=== PATIENT | female | born 1965 | race Caucasian/White ===

== ENCOUNTER 2021-04-04 17:19 | Inpatient (IN) | payer MEDICARE ==
[~2021-04-04] VITALS: Ht 152.4 cm; Wt 49.0 kg
[2021-04-05 00:40] VITALS: BP 134/73
[2021-04-05 06:56] LABS: CHOLESTEROL 189 mg/dL (<200); HDL CHOLESTEROL 80 mg/dL (>40); LDL CHOLESTEROL 102 mg/dL (<100); TC:HDL 2.4 Ratio (Not establshd); TRIGLYCERIDE 38 mg/dL (<150); VLDL 8 mg/dL (<40)
--- NOTE | 2021-04-05 07:12 | NUR ---
04-05-21 RECEIVED LIMITED REPORT FROM ED RN ESTHER. PT ARRIVED ON UNIT 0040 PT AAOX2, VS B/P 134/73, P 93, R 18, T 98.0, 02 SAT 96% RA RR EVEN AND NONLABORED ON RA, LUNGS CLEAR, HT RR, ABD SOFT/ACTIVE/NONTENDER. PT YELLING OUT REPEATLY AGITATED AND AGITATION EXCELLED DURING CARES, PT HAS REDNESS IN PERIAREA, CLEANED WITH SOAP/WATER, BARRIER CREAM APPLIED. PT BED WAS ADJUSTED FOR COMFORT AND PT ALLOWED QUIET TIME IN ROOM. PT HX DOWNS SYNDROME, ELEVATED CHOLESTEROL, SEZUIRES, HYPOGLYCEMIA, VON HIPPEL-LINDAU SYNDROME AND DEMENTIA. HCP Dee CHAIDEZ, MEDICAL LAB ASSISTANT CONTACTED, HCP Dee IVEY DO CONTACTED AND ORDERS RECEIVED. PT DPOA DELORES JORDAN (SISTER) CONTACTED AND CONSENT RECEIVED REPORT THAT PT HAS BEEN VACCINATED FLU AND COVID WITH BOOSTER, DPOA POOR HISTORIAN WHEN RELATING INFORMATION. DPOA REPORTED THAT PT HAS BEEN IN 4 FACILITY AND 2 DIFFERENT HOSPITALS WITH MULTI ENCOUNTERS TO ED SINCE OCTOBER 2020 [address] F[address] [place] [address] AND SEVERAL TRIPS TO ED PRIOR TO DISCOVERY OF FRACTURE IN SPINE AND DPOA BELIEVES THAT PAIN LEAD TO HER SISTER HAVING SEIZURES. DPOA IS CONCERNED ABOUT SEVERAL FACILITIES OVER MEDICATING HER SISTER. LATER PT YELLING OUT, TEARFUL AND AGITATED. HCP Dee IVEY DO CONTACTED AND ORDER RECEIVED AND ADMIN. LATER PT WAS SMILING AND COOPERATIVE, PT VERBAL COMMUNICATIN IS LIMITED R/T MENTAL STATUS. PT WILL CONTINUE TO BE MONITOR PER [facility] PROTOCOL.
[2021-04-05 08:50] LABS: ABSOLUTE NEUTROPHILS 5.2 thou/uL (1.4-8.2); BASOPHILS 0.7 % (0.0-2.0); EOSINOPHILS 0.6 % (0.0-3.0); HEMATOCRIT 38.4 % (37.0-47.0); HEMOGLOBIN 12.3 gm/dL (12.0-15.0); LYMPHOCYTES 10.8 % (24.0-44.0); MCH 30.9 pg (26.0-34.0); MCHC 31.9 g/dL (28.0-37.0); MCV 96.7 fL (80.0-100.0); MONOCYTES 8.5 % (1.0-8.0); PLATELET COUNT 201 thou/uL (150-400); POLYS 79.4 % (36.0-66.0); RBC 3.98 mil/uL (4.20-5.00); RDW 13.8 % (10.5-14.5); WBC 6.6 thou/uL (4.0-11.0)
[2021-04-05 08:53] LABS: ANION GAP 16 mmol/L (7-16); BUN 19 mg/dL (7-18); CALCIUM 9.4 mg/dL (8.5-10.1); CHLORIDE 100 mmol/L (98-107); CO2 21 mmol/L (21-32); CREATININE 0.9 mg/dL (0.6-1.0); GLUCOSE 166 mg/dL (74-106); MAGNESIUM 2.2 mg/dL (1.8-2.4); POTASSIUM 3.8 mmol/L (3.5-5.1); SODIUM 137 mmol/L (136-145)
[2021-04-05 10:03] VITALS: BP 95/52
--- NOTE | 2021-04-05 11:17 | NUR ---
Nutrition: Pt admitted to [facility] with major neurocognitive disorder with behaviors. Seen due to new admission. PMH: Downs syndrome, dementia, seizure. Pt ate well by herself this am, 100% of breakfast. No weight hx. BMI 21 WNL. Low nutrition risk.
--- NOTE | 2021-04-05 12:28 | NUR ---
Welcome Email sent to [email or web address]
--- NOTE | 2021-04-05 12:52 | NUR ---
RESTLESS THIS AM ASKING TO GO TO BATHROOM FREQUENTLY -DID VOID MODERATE AMOUNT CLEAR YELLOW URINE-ATE APPROX 50 PERCENT OF MEAL AND ALL OF ENSURE SUPPLEMENT PROVIDEDREQUIRES TOTAL ASSISTOF STAFF DOES VERY LITTLE FOR SELF-INSISTING THAT SHE "CAN"" LIFT CUP OR SPOON OR FORK TO FEED SELF. ABDOMEN NOTED TO BE FIRM DURING AM ASSESSMENT-BLADDER SCAN COMPLETED AND LESS THAN 70CC URINE INBLADDER-STRAINING TO HAVE BM-MD CALLED AND ORDER OBTAINED FOR FLEETS ENEMA AND ASSISTED ONTO COMMODE-ENEMA GIVEN WITH LARGE AMOUNT HARD STOOL PASSED.
--- NOTE | 2021-04-05 13:15 | NUR ---
COMPLIENT WITHTAKING AM MEDICATIONS WHOLE WITH APPLESAUCE-NOTED DURING BREAKFAST TO HAVE SOME RESTLESSNESS-ANXIOUS FACIAL EXPRESSION-MULTIPLE ATTEMPTS TO STAND OCCASSIONALLY WILL YELL OUT BUT WHEN STAFF APPROACHES CLOSES EYES TIGHTLY AND WILL NOT RESPOND WHEN ASKED WHAT IT WAS SHE NEEDED-NODS HEAD IN NEGTIVE MANNER WHEN ASKED IF HAVING PAIN. ATIVAN 0.5MGPO PRN ALONG WITH AM MEDICATIONS. DID REST QUIETLY IN CHAIR FOR APPROX 40 MINUTES RECLINING IN GERICHAIR IN DAYROOM. BEGAN TO YELL OUT STARTING AT APROX 1100 WITH VOLUME AND INTENSITY OF SCREAMING INCREASING PM PROGRESSES. DR PERRY ON UNIT AND ZYPREXA 2.5MG GIVEN PO AT 1300 PER ORDER. PT ASSISTED TO BATHROOM BRIEF CHANGED AND RESPOSITONED FOR COMFORT. TAKEN TO ROOM IN ATTEMPT TO DECREASE STIMULI./
--- NOTE | 2021-04-05 15:25 | NUR ---
EFRAIN and Dr. Craig attempted to visit with patient. Patient was sleeping in Joselin-chair in dayroom. EFRAIN and Dr. Craig made phone contact with patient's sister, Millie King. Millie is the patient's DPOA. She has cared for the patient since the of their parents in 2007. Millie states the patient experienced a fall, hitting the top of her head in November 2020. The patient later had a seizure from this fall. The patient has had two additional seizures but not as significant as the first. Millie reports the patient will scream and cry out; however, Millie reports being able to calm her. She feels the patient is crying out due to anxiety from not being with her. Millie is supportive of the patient being on medication to assist with her yelling and crying out. Millie does not want her on seizure medication. Millie reports the patient was born in [place], [place] and raised in [place], [place]. The patient has a total of six siblings. She is the baby. The patient completed high school. She reportedly has an IQ in the 90s and has worked a job which she enjoyed as it provided routine. Millie describes the patient as loving to be around others, active and very cooperative when not over medicated. Millie is looking into [employer] for the patient. Millie does not believe the patient would be successful in her home as the home is not conducive to those with handicaps. Email sent scheduling family meeting for 04/10 at 2:00pm.
[2021-04-05 19:02] VITALS: BP 134/96
--- NOTE | 2021-04-06 05:12 | NUR ---
Assumed care of pt at 1900. Pt with verbal outbursts from beginning of shift increasing in tone et veracity until nursing had to be prompted to call KOSHER INSPECTOR executive director contract shop for PRN order of Ativan 0.5mg IM to be administered to pt at 1930. Pt tolerated injection with no signs or symptoms of adverse reaction. Pt calmed down but only slightly et began yelling again approximately 45 minutes to one hour following injection. Pt finally calmed down enough to sleep around 2200. Pt took meds whole in yogurt without difficulty. Ambulates with assistance of sharan-chair. VSWNL. Health assessment with no abnormalities noted at present time. Unable to assess SI/HI due to cognitive deficit but does not demonstrate any symptoms of acute emotional distress at present time. Currently resting in bed with eyes open et starting to vocalize at approximately 0515 this AM. Will continue to monitor per unit protocol.
[2021-04-06 06:06] LABS: GLYCOHEMOGLOBIN (HGB A1C) 5.2 % (4.8-5.6)
[2021-04-06 09:47] VITALS: BP 120/72
[2021-04-06 11:00] VITALS: BP 88/60
--- NOTE | 2021-04-06 11:20 | NUR ---
RESUMMED CARE FROM OVERNIGHT SHIFT THIS AM, PATIENT IN DAY ROOM SITTING IN HARRY CHAIR. PATIENT WAS CALM DURING BREAKFAST TOOK MEDICATION IN APPLESAUCE. PATIENT ALERT ORIENTED TIMES 2 PATIENT DENIES SI/HI/AH/VH AT PRESENT. PATIENTS ABDOMEN SOFT BOWEL SOUNDS PRESENT PATIENTS LUNGS CLEAR. PATIENT AROUND 09:45 STARTED YELLING OUT FOR LU. WE TRIED TO CALM PATIENT AND REMOVED HER FROM THE DAY ROOM. SHE STILL CONTINUED TO YELL OUT THREW DOLL BABY ON FLOOR; I CALLED [employer] PAINTER FOR PRN HE ORDERED GEODON 15 MG IM. PATIENT ALLOWED ME TO GIVE PRN WITHOUT BEING HELD. PATIENT IS NOW RESTING IN BED QUIET WILL CONTINUE TO MONITOR PATIENT FOR SAFETY AND BEHAVIORS.
[2021-04-06 19:00] VITALS: BP 82/53
--- NOTE | 2021-04-06 21:53 | H ---
[facility] [place] [address] [place] [address] HISTORY AND PHYSICAL Name: MARLENI BENJAMIN Room #: 519A-A ADM IN M.R.#: [id number] Admission: 04/05/21 Attend Phys: Frantz Craig DO Discharge: Date of : 63 Report #: [id number] THIS REPORT FOR: cc: FAM - No family physician/PCP FAM - No family physician/PCP Frantz Craig DO ~ DATE OF SERVICE: 04/05/2021 INPATIENT GERIATRIC PSYCHIATRIC EVALUATION SOURCES OF INFORMATION: The patient is demented with Down syndrome and poor functional level and is unable to answer any reasonable questions. She is crying out frequently. She gets calmed down. Anyways, she has a DPOA, her sister named, Millie. In addition, the patient had a fairly prolonged hospital stay at [facility]. Her date of admission up there was 03/27/2021 and day of discharge would have been 04/04/2021. CHIEF COMPLAINT: Unspecified. HISTORY OF PRESENT ILLNESS: This is a 55-year-old female who presented via EMS for crying. She lives at a facility, [facility] in [place], which is not allowing her to return. She presented with her sister who likely gave all the history. She has been living for 2 months since November at the facility for difficult to control her anxiety as well as take care of the patient. This facility now feels like the patient is too hard to care of during anxiety episodes. She has had a televideo visit with a psychiatrist, who has been tweaking her medicines without able to control the patient. She is on citalopram, trazodone, clonazepam as needed and is currently on Seroquel and most recently on risperidone. The sister states that the patient just has these episodes of anxiety attacks, where she is not there and the staff was having trouble controlling her, so they have sent her to the ER due to feeling that she is too acutely ill for them to take care of. PAST MEDICAL HISTORY: Includes Down syndrome, elevated cholesterol, focal epilepsy, hypoglycemia, and von Hippel-Lindau syndrome. PSYCHIATRIC HISTORY: Dementia. 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 She has also had a tonsillectomy. MEDICATIONS: Prior to admission at [facility] included vitamin D3; B12; fish oil; pravastatin; oxcarbazepine 300 mg per 5 mL, 2 mL p.o. b.i.d., so she was on 600 b.i.d. [facility] [address] [place] [address] HISTORY AND PHYSICAL Name: MARLENI BENJAMIN Room #: 519A-A ADM IN M.R.#: [id number] Admission: 04/05/21 Attend Phys: Frantz Craig DO Discharge: Date of : 63 Report #: [id number] ALLERGIES: MONTELUKAST CAUSES MEMORY LOSS AND CONFUSION. SOCIAL HISTORY: No alcohol history. No substance use history. No tobacco history. FAMILY HISTORY: Bladder cancer in her father, cancer of colon in her mother, diabetes in father. Interestingly, her mother had von Hippel-Lindau syndrome as well. LABORATORY DATA: The laboratory list I got from [facility], labs done around 03/27/2021, include H and H 13.8 and 42.0, white count 6.3, platelet count 199. Sodium 139, potassium 3.9, chloride 102, bicarbonate 28, calcium 9.7. Alkaline phosphatase 93, ALT 19, AST 20. B12 level 713. Folic acid 17.1. Vitamin D 25 actually normal at 46.1, total protein 7.8, albumin low at 3.3, BUN 19, creatinine 0.8. TSH 2.31. It looks like they did a SARS-CoV-2 PCR, I believe that was negative. There was a CT head done. I do not see radiology results yet. Urine drug screen was negative. The SARS-CoV-2 PCR was negative as well. Hopefully on further records, we will remark on this CT scan; I cannot find the results of it at this point. It looks like at [facility], they diagnosed her Down syndrome and major neurocognitive disorder. She is on Ativan 0.5 mg daily, risperidone 0.25 mg daily, continuing escitalopram; also hyperlipidemia. Dr. Marte saw this patient as well. Some additional notes, no history of head injuries. Her brother does have seizures. Prior EEGs have demonstrated generalized slowing consistent with diffuse cerebral dysfunction. MRI brain from 05/2020 is compared to a prior study of 08/2018, which demonstrated moderate supratentorial ventriculomegaly and minimal bifrontal white matter changes, perhaps minimally progressed. Most likely, they did a pretty extensive evaluation, Dr. Marte that is. He had diagnosed her with anxiety disorder. EEG was ordered, but it does not appear that it was done before the weekend, and there was concern for nonconvulsive status. Still, I do not see any EEG report, but sometimes such reports are not easy to find. It looks like Dr. Pereyra saw her on 04/01/2021 and there still was not an EEG done. Her medications at [facility] they were managing on include cholecalciferol, diclofenac, lidocaine, multivitamin, omega 3 poly, unsaturated fatty acids, acetaminophen, artificial tears, docusate, lorazepam 0.5 mg p.o. q. 6 hours and 1 mg q. 4 hours, mag citrate, melatonin, naloxone p.r.n. Finally, found from Dr. Pereyra EEG completed this morning. When I came to the floor, the patient was screaming loudly for around 5 minutes and was given lorazepam with good effect. Sister was present during the interview and she thinks at this point it is related to abdominal pain. This was on the 04/02/2021, so maybe on the 04/03/2021, she will have EEG results. EEG shows slowing, but no seizure activity. ABI moseley. [facility] [address] [place] [address] HISTORY AND PHYSICAL Name: MARLENI BENJAMIN Room #: 519A-A ADM IN M.R.#: [id number] Admission: 04/05/21 Attend Phys: Frantz Craig, DO Discharge: Date of : 63 Report #: [id number] Abdominal x-ray showed scattered gas and stool, but no evidence for obstruction and compliant with risperidone. I still do not see any CT results done at [facility], so we will have to track this down under their comments. Here at [facility] from 04/05/2021, hematology: White count 6.6, H and H 12.3 and 38.4, platelet count 201. Sodium 137, potassium 3.9, chloride 100, bicarbonate 21, anion gap 16, BUN 19, creatinine 0.9, estimated GFR 65, glucose 166. A1c is pending. Calcium 9.4, magnesium 2.2. Triglycerides 38, cholesterol 189, LDL 102, HDL 80. B12 was 713. TSH 1.225. PHYSICAL EXAMINATION: VITAL SIGNS: Today, temperature 36.4, pulse 77, respirations 17, BP 95/50, O2 sat 99%. BMI 21.3, weight 49.578 kilograms. GENERAL: Well-developed, unkempt female, short stature, in chair, crying and yelling frequently. MENTAL STATUS EXAMINATION: Well-developed, ill-appearing female, apparently with Down's features. Attention and concentration impaired. Speech, says some words periodically, but not able to converse with her. I am unable to assess well for suicidality, homicidality, auditory, visual or tactile hallucinations. Mood was dysphoric, tearful, and congruent. Memory not able to be formally tested. Insight is impaired and judgment impaired. Fund of knowledge well below average. FORMULATION: A 55-year-old female formerly under placement of her sister's DPOA. DIAGNOSIS: Major neurocognitive disorder. Her medical problems as best I can tell are chronic constipation- I will order stool softener, elevated glucose, GI prophylaxis. Review of systems cannot be completed. PLAN: The patient is admitted to [facility] to evaluate, stabilize, obtain collateral. Regarding her medications, famotidine 20 mg oral daily; olanzapine 2.5 mg oral at 1300 and 2100, we will change that to 9 and 9. Senna docusate started 2 tabs p.o. b.i.d., multivitamin p.o. daily, Flonase nasal daily, fish oil daily, diclofenac topical b.i.d., vitamin D 2000 international units oral daily, MiraLax 17 grams p.o. daily. Otherwise, house PRNs. I spoke to the sister at fair length today. Discussed the difficulty of the situation. The sister had not gotten much sleep and had had a rather unproductive conversation with her nightshift nurse. Today, the sister is feeling much better. She appreciates her health, will take this [id number] and attempt to get better placement for her. The patient is [facility] [address] [address] HISTORY AND PHYSICAL Name: MARLENI BENJAMIN Room #: 519A-A ADM IN M.R.#: [id number] Admission: 04/05/21 Attend Phys: Frantz Craig DO Discharge: Date of : 63 Report #: [id number] very sensitive to psychiatric medications. Medications like clonazepam and Ativan are not exactly preferred. STRENGTHS: She is insured, has an active DPOA. WEAKNESSES: Does not have a placement, several significant genetic diseases. No code at this point. Time spent on this case, greater than 60 minutes, greater than 50% of the time was spent on reviewing records and coordination of care. <ELECTRONICALLY SIGNED> By: Frantz Craig DO 04/06/21 2153 [id number] [id number] Frantz Craig DO /nt
--- NOTE | 2021-04-07 06:36 | NUR ---
Assumed care of pt at 1900. Pt calm et cooperative this shift. Took medications whole without difficulty. Ambulates with assistance of sharan-chair. Spent most of shift in room due to sedation from PRN given on previous shift. VSWNL. Health assessment with no abnormalities noted at present time. Unable to assess SI/HI due to cognitive deficit but does not demonstrate any symptoms of acute emotional distress at present time. Currently resting in sharan-chair in dayroom with eyes open. Will continue to monitor per unit protocol.
[2021-04-07 09:10] VITALS: BP 109/58
--- NOTE | 2021-04-07 09:57 | NUR ---
REQUIRES TOTAL CARE WITH ALL ADLS WILL NOT INITIATE FEEDING SELF AND WHEN CUP AND OR FOR/SPOON PLACED IN HANDS APPEARS UNSURE OF WHAT TO DO WITH IT. WILL EAT WHEN FEED ALTHOUGH APPEARS TO DO BETTER WITH PUDDING/ICE CREAM AND WILL NOT OPEN MOUTH FOR EGGS/SURINAMESE TEST WHEN OFFERED AT BREAKFAST. TAKES FLUIDS WELL.
--- NOTE | 2021-04-07 18:18 | NUR ---
HAS CONTINUED TO YELL OUT EPISODICALLY THROUGHOUT SHIFT-WILL QUIET WHEN STAFF SITTING AT SIDE HOLDING HER HAND OR WHEN GIVEN SPRITE,ICE CREAM OR PUDDING-HAS BEEN ASSISTED TO TOILET Q2 HOURS AND IS COMPLIENT WITH INCONTINENT CARE. NOTED TO BECOME LOUDER AND MORE AGITATED PM PROGRESSD-ATTEMPTED TO LAY IN BED WAS NOT RESPONDING TO ABOVE NOTED INTERVENTIONS. APPEARS SUSPICIOUS OF STAFF AND BEGINS TO STRIKE OUT WITH ATTEMPTS TO PROVIDE CARE OR REDIRECT/REASSURE. DEANNA GIL ON UNIT AND OVERHEARD SCREAMING GEODON 15MG GIVEN IM X1 AT 1745 IN RIGHT DELTOID-OFFERED NO RESISTANCE TO ADMINISTRATION OF MED.
[2021-04-07 19:32] VITALS: BP 124/73
[2021-04-07 20:00] VITALS: BP 124/73
--- NOTE | 2021-04-07 23:45 | NUR ---
PATIENT WAS UP IN HARRY CHAIR THIS EVENING. SHE HELD HER DOLL AND SAT QUIETLY IN DAYROOM WHILE [employer] GAME WAS ON. SHE REFUSED HS SNACK. SHE SAYS SHE'S NOT HUNGRY. PATIENT HAD LARGE BM AND WAS CLEANED UP. DENIES PAIN. PLEASANT AND COOPERATIVE. PATIENT ASSISTED BACK TO BED. CHAIR ALARM ON AND WORKING WHEN UP IN CHAIR. BED ALARM ON WHILE IN BED AND BED IN LOW POSITION. PT A/0X1. PATIENT TOOK MEDS WHOLE WITH WATER. NO INDICATIONS OF SI/HI/AVH AT THIS TIME. ROUTINE ROUNDS TO ASSESS SAFETY AND STATUS OF PATIENT.
[2021-04-08 09:25] VITALS: BP 130/92
--- NOTE | 2021-04-08 11:00 | NUR ---
DID EAT APPROX 75 PERCENT OF BREAKFAST WITH STAFF ASSISTANCE. NO YELLING OUT SO FAR THIS AM-OCCASSIONALLY WILL OFFER 1-2 WORD VERBAL RESPONSES. TOILETED VIA COMMODE Q 2 HOURS AND ALLOWED BRIEF CHANGE INCONTINENT CARE WITHOUT RESISTANCE.
--- NOTE | 2021-04-08 14:49 | NUR ---
SW visited with patient. Patient smiled and stated she was doing good. Patient expressed excitement to color but did not color. Patient was present in the room for group but did better when the SW spoke to her one-on-one.
--- NOTE | 2021-04-08 15:30 | NUR ---
NO YELLING OUT SO FAR TODAY-COMPLIENT WITH TAKING SCHEDULED MEDICATIONS WHEN OFFERED. MINIMALLY VERBAL WILL OFFER 1-2 WORD RESPONSES OR SPONTANEOUS VERBALIZATION AT TIMES. REQUIRES ASSIST X 1-2 TO TRANSFER TO/FROM COMMODE.
[2021-04-08 19:52] VITALS: BP 94/61
[2021-04-08 20:10] VITALS: BP 94/61
--- NOTE | 2021-04-08 21:11 | NUR ---
PATIENT STARTED OUT SHIFT SITTING AND PLAYING WITH HER DOLL IN THE DINING ROOM. SHE SAT IN HARRY CHAIR ON CHAIR ALARM THAT WAS ACTIVATED. PATIENT WAS PLEASANT AND COOPERATIVE. SHE TOOK HER MEDS WHOLE WITH APPLEJUICE. SHE ALSO FED HERSELF WITH SOME ASSISTANCE YOGURT. SHE DENIES PAIN. SHE BECAME IRRITABLE AROUND 2044 AND BEGAN YELLING OUT PLAY. PLAY. STAFF TRIED TO ENTERTAIN HER AND THIS MADE HER MORE MAD. PATIENT TAKEN TO BED AND INCONTINENCE CARES DONE. PATIENT LAYING IN BED AND CRYING OUT AT TIMES. SHE IS SLOWLY QUIETING DOWN. WORDS OF REASSURANCE AND ROOM CHECKS TO COMFORT HER. NO SIGNS OF SI/HI/AVH. CONTINUING TO MONITOR.
--- NOTE | 2021-04-08 21:41 | NUR ---
PATIENT STILL FUSSY WHILE IN BED. PATIENT RESTLESS AND SAYS YES TO PAIN BUT CAN'T INDICATE WHERE. SHE CALMS DOWN WHEN I TELL HER I WILL GO GET HER SOMETHING TO HELP HER PAIN. I GAVE PATIENT TYLENOL 650MG PO AND ALSO FAMATODINE TO HELP WITH GERD OR STOMACH UPSET WITH TYLENOL. PATIENT TOOK MEDS WHOLE WITH WATER. PATIENT LAID BACK DOWN AND IS PLAYING WITH A POP UP BOARD AND HER DOLL. PT RESTING QUIETLY. BED IN LOW POSITION AND BED ALARM IS ON.
[2021-04-09 08:00] VITALS: BP 90/56
[2021-04-09 08:57] VITALS: BP 75/63
--- NOTE | 2021-04-09 11:40 | NUR ---
Alert and orientated to name only. No speech or behavior suggestive of SI/HI. Resistive to getting out of bed requiring 2 staff assist. Happy and compliant at table, laughing. Breath sounds clear. Reg HR auscultated. Color pink with brisk capillary refill and palpable peripheral pulses. BP repeated at 0800 90/56. Initially BP was 75/63. Incontinent of large amt yellow urine. Active bowel sounds over soft rounded abdomen. Per report DPOA requesting pt to work with PT d/t she had been walking previously. Dr. Craig notified, order placed for PT consult.
[2021-04-09 19:08] VITALS: BP 97/51
--- NOTE | 2021-04-10 04:33 | NUR ---
04-10-21 CARE TRANSFERRED 1899 OBSERVED PT SITTING IN RECLINER IN DAY ROOM. LATER PT AAOX1, VSS, RR EVEN AND NONLABORED ON RA, PT DENIES SI/HI. PT PRESENTS CHILD LIKE BUT HAPPY AND TRIES TO ENGAGE IN CONVERSATION BUT FALLS SHORT R/T MENTAL CAPACITY. PT CALM AND COOPEATIVE. DURING MEDICATION ADMIN PT HAD NO DIFFICULTIED TAKING WHOLE WITH WATER. LATER PT WAS ASSISTED TO BED AND DURING ROUNDS NOTED PT SITTING UP NOT SLEEPING. PT WILL CONTINUE TO BE MONITOR PER [facility] PROTOCOL.
--- NOTE | 2021-04-10 08:39 | NUR ---
Pt. had a longer than normal seizure so CONTRACT CLERK AUTOMOBILE was activated-see flowsheet
[2021-04-10 09:35] LABS: ALBUMIN 2.7 g/dL (3.4-5.0); CALCIUM 9.2 mg/dL (8.5-10.1); CREATININE 0.9 mg/dL (0.6-1.0); MAGNESIUM 2.1 mg/dL (1.8-2.4); POTASSIUM 3.5 mmol/L (3.5-5.1); TOTAL BILIRUBIN 0.3 mg/dL (0.2-1.0); TOTAL PROTEIN 7.3 g/dL (6.4-8.2)
[2021-04-10 11:11] VITALS: BP 120/56
[2021-04-10 11:12] LABS: URINE BILIRUBIN NEGATIVE (Negative); URINE BLOOD NEGATIVE (Negative); URINE CLARITY CLEAR; URINE COLOR YELLOW; URINE GLUCOSE-RANDOM* NEGATIVE (Negative); URINE KETONES NEGATIVE (Negative); URINE LEUKOCYTES-REFLEX NEGATIVE (Negative); URINE NITRITE-REFLEX NEGATIVE (Negative); URINE PROTEIN (DIPSTICK) NEGATIVE (Negative); URINE SPECIFIC GRAVITY 1.025 (1.005-1.035); URINE UROBILINOGEN 0.2 E.U./dl (0.2-1.0)
--- NOTE | 2021-04-10 12:36 | NUR ---
RESUMMED CARE FROM OVERNIGHT SHIFT THIS AM, PATIENT SITTING NEXT TO NURSES STATION QUIET IN HARRY CHAIR. PATIENT ALERT TO SELF ONLY PATIENT HAD A SEIZURE WHILE SITTING IN HARRY CHAIR AT 0800 AM. RAPID RESPONSE CALLED PATIENT SEIZURE LASTED ABOUT 1 MINUTE. PATIENT GIVEN ATIVAN [address] LAZO ORDERED LIQUID KEPPRA 500 BID. PATIENTS VITALS WITHIN NORMAL LIMITS DR IVEY SPOKE WITH SISTER ABOUT HER SEIZURE HX. PATIENT HAD EPISODE OF ENCOPRESIS DURING SEIZURE. PATIENT CLEANED UP AND I DID A STRAIGHT CATH FOR A UA, PATIENTS ABDOMEN SOFT BOWEL SOUNDS PRESENT. PATIENTS LUNGS CLEAR NOT ABLE TO ASK ABOUT SI/HI/AH/VH AT PRESENT. PATIENT RESTING VERY QUIETLY WILL CONTINUE TO MONITOR PATIENT FOR SAFETY AND BEHAVIORS.
--- NOTE | 2021-04-10 16:59 | NUR ---
Family meeting with Dr. Craig and Millie. Millie expressed wanting the patient to be placed in her home Thursday with supports in place. Millie reports that she is having a bedroom moved to the living room so the patient does not have to navigate stairs. Millie has two people lined up to assist with care for the patient. Millie feels the patient's behaviors is due to separation anxiety. Millie requested orders for PT for the patient. Discharge was scheduled for Thursday, 04/12 at 1:00pm. The will assist in getting psychiatrist arranged for the patient.
[2021-04-10 18:45] VITALS: BP 98/53
[2021-04-10 20:30] VITALS: BP 98/53
--- NOTE | 2021-04-10 23:35 | NUR ---
PATIENT WAS RECLINING IN HARRY CHAIR IN FRONT OF NURSE STATION WHEN ASSUMED CARE OF PATIENT. HER HEAD WAS BENT TO THE LEFT SHE KEPT TRYING TO REST IT ON ARM OF CHAIR. PILLOW WAS PLACED UNDER HER HEAD BUT KEPT COMING OUT AND PUT BACK IN PLACE. PATIENT'S NECK WAS SORE AND SHE CRIED OUT IT TRIED TO STRAIGHTEN NECK. DICLOFINAC CREAM APPLIED TO NECK AND TYLENOL 650MG PO GIVEN WITH HS MEDS FOR DISCOMFORT. PATIENT TOOK MEDS CRUSHED IN PUDDING. PATIENT KEPT CALLING OUT FOR HELP BUT YELLED AND PUSHED US BACK WHEN WE CAME TO HER. PATIENT FELL ASLEEP FOR SHORT TIME IN CHAIR AND AWOKE SHORTLY AFTER AND BEGAN CALLING OUT. PATIENT TAKEN TO HER ROOM TO DO INCONTINENCE CHECK. PATIENT POSITIONED COMFORTABLY IN BED FOR THE NIGHT. PATIENT KEPT YELLING OFF AND ON. PATIENT HAS A ROOM MATE. CALLED DEANNA OROSCO AND RECIEVED ORDER FOR ATIVAN 0.5MG PO Q 6 HOURS PRN AGITATION. IT HAS BEEN OVER 2.5 HOURS AND PATIENT STILL CALLING OUT AND NOTHING CALMING HER. SHE CALMS DOWN FOR SHORT SPURTS AND THEN STARTS UP AGAIN. WHEN I GO INTO HER ROOM SHE IS SO DROWSY WITH EYES CLOSED AND CALLING OUT. WHEN I TRY TO REPOSITION HER OR ASK HER IF SHE'S HURTING SHE PUSHES MY HAND AWAY AND YELLS GO AWAY. NOTIFIED DEANNA OROSCO AND WE WILL TRY AND WAIT TILL 0230 FOR NEXT DOSE OF ATIVAN. CONTINUING TO MONITOR. PATIENT IS A/0X1. NO INDICATION OF SI/HI/AVH. NOTED. BED IN LOW POSITION AND BED ALARM IS ON.
--- NOTE | 2021-04-11 00:36 | NUR ---
PATIENT STILL WHINING AND MOANING IN SLEEP. PT AWOKE ENOUGH TO TAKE ZOFRAN 4MG PO PRN. NOT SURE IF STOMACH UPSET OR DISCOMFORT SOMEWHERE ELSE. REPOSITIONED. PATIENT QUIETED AND RESTING. CONTINUE TO MONITOR. MED TAKEN WITH PUDDING.
--- NOTE | 2021-04-11 02:36 | NUR ---
PATIENT STILL CALLING OUT WHILE HALF ASLEEP AND VERY LOUD AT TIMES. DOESN'T WANT TO BE TOUCHED AND SCREAMS WITH CARES. TYLENOL 650MG PO AND ATIVAN 0.5MG PO CRUSHED IN APPLESAUCE AND GIVEN AT 0230. PATIENT REPOSITIONED. STILL CALLING OUT. WILL GET PT UP IN [facility] IF NOT QUIETED IN A FEW MINUTES. PATIENT HAS BEEN CALLING OUT MOST OF NIGHT. ROOM MATE NOT ABLE TO REST WELL.
--- NOTE | 2021-04-11 05:07 | NUR ---
PATIENT FINALLY FELL OFF TO SLEEP SOUNDLY AROUND 0345. SHE HAS NOT CRIED OUT SINCE THEN. SEEMS TO BE RESTING PEACEFULLY AND SOUNDLY. RESPIRATIONS EVEN AND UNLABORED. CONTINUING TO MONITOR. BED IN LOW POSITION AND BED ALARM IS ON.
[2021-04-11 10:32] VITALS: BP 128/74
--- NOTE | 2021-04-11 15:08 | NUR ---
Ene appeared to be alert and oriented to self only this shift. At the start of the shift pt appeared tired and was not alert enough to eat breakfast; per shift production supervisor pt slept "about 2 hours" and fell asleep around 0400. Shortly after breakfast pt began to moan and yell out. Due to pt opening her eyes and being a little more alert this RN attempted to give pt her liquid Keppra. Pt began coughing and coughed for about 15 minutes afterwards; therefore medications crushed in yogurt were held. Dr. Craig ordered a stat chest x-ray and speech evaluation. Pt's diet was switched to a pureed diet.
[2021-04-11 19:48] VITALS: BP 126/68
--- NOTE | 2021-04-11 22:50 | NUR ---
At onset of operation shift supervisor pt was resting in bed asleep. Day shift reported that pt received IM toradol at 0946 and has been asleep for the day. During assessment pt would not reposition but pt did moan and stir in bed. Vital signs were stable; O2 at 96% on room air, respirations were even and unlabored. Unable to assess orientation, SI, HI and AVH. Pt did not have any PO HS medications. Fall precautions are in place. Will continue to monitor.
[2021-04-12 07:49] VITALS: BP 104/58
--- NOTE | 2021-04-12 08:59 | NUR ---
Phone call to Evangelist regarding scheduling a psychiatric appointment four the patient - office closed on Fridays.
[2021-04-12] MEDS ORDERED: LORAZEPAM I2 MG/1 M2 SUBLING (09:15)
[2021-04-12] MEDS ORDERED: FLONASE 0.05%50 MCG NASAL (09:15)
[2021-04-12] MEDS ORDERED: CENTRUM SILVER1 EAC4 PO (09:17)
[2021-04-12] MEDS ORDERED: VITAMIN D325 MC2 PO (09:17)
[2021-04-12 09:28] VITALS: BP 104/58
[2021-04-12 11:29] VITALS: BP 104/58
--- NOTE | 2021-04-12 13:12 | NUR ---
Ene Nguyen was alert and oriented to self only this shift. She was more alert this morning and was able to take a couple bites of food and ate a whole container of applesauce, with a feeder. She was noted to be laughing and smiling and more conversive. She received a shower with x2 assistance prior to discharge and was changed into her own clothing. Discharge summary was reviewed with LG/sister Millie, all questions answered. Pt was escorted to the ER enterance where pt's CINDY Pinto was via w/c. Pt was transferred to the car and discharged with all belongings. Pt was stable at D/C. She left [facility] at 1253. Millie called back shortly after regarding pt's hearing aids as they were taken out during pt's shower, but this RN brought them back down to the ER to Millie. Millie was encouraged to call with any further questions.
--- NOTE | 2021-04-13 17:07 | D ---
[facility] [place] [address] DISCHARGE SUMMARY Name: MARLENI BENJAMIN Room #: 519B-B DIS IN M.R.#: [id number] Admission: 04/05/21 Attend Phys: Frantz Craig DO Discharge: 04/12/21 Date of : 63 Report #: [id number] THIS REPORT FOR: cc: FAM - No family physician/PCP FAM - No family physician/PCP Frantz Craig DO ~ DATE OF SERVICE: 04/12/2021 INPATIENT PSYCHIATRIC DISCHARGE SUMMARY ATTENDING PSYCHIATRIST: Frantz Craig DO [employer]EN[employer]IFUG[employer] CHILLER TECHNICIAN: Kelly Catalan MD DISCHARGE DIAGNOSES: 1. Major neurocognitive disorder, likely due to Alzheimer's disease with behavioral disturbance, some improvement. 2. Down syndrome. 3. History of Hippel-Lindau disease. Additional medical morbidities include possible seizure disorder, guardian requesting no neurologic consultation. Also dysphagia, changed to pureed diet while hospitalized, chronic constipation. The patient is on thin liquids pureed diet, discharging to her guardian's home. Psychiatric and medical care was arranged as best we can given the pandemic and includes recommending to go to [facility] in [place]. The patient is encouraged to see primary care physician in 1 month. DISCHARGE MEDICATIONS: As follows: Lorazepam 1 mg sublingual q. 6 hours p.r.n. for agitation, given an Rx for 2 mg per 1 mL -rx given for 30 mL of Ativan Intensol, Flonase nasal spray 1 spray each nostril daily for allergic rhinitis, vitamin D3 2000 international units oral daily, supplementation, multivitamin oral daily for supplementation. LABORATORY DATA: Significant laboratories this admission, hematology from 04/05, white count 6.6, H and H 12.3 and 38.4, platelet count 201. Chemistry: Sodium 137, potassium 3.5, chloride 100, bicarbonate 23, anion gap 14, BUN 16, creatinine 0.9, estimated GFR 65, calcium 9.2, magnesium 2.1, total bilirubin 0.3, AST 21, ALT 28, alkaline phosphatase 85, albumin quite low at 2.7, triglycerides 38, total cholesterol 189, LDL 102, HDL 80. B12 was 713. TSH 1.225. Urinalysis this admission was completely clean. COVID-19 was not detected on 04/07, 04/09, 04/12. REASON FOR ADMISSION: Back on 04/05, a 55-year-old female, although with special needs, residing at [facility] in [place], [place]. The [address] [address] DISCHARGE SUMMARY Name: MARLENI BENJAMIN Room #: 519B-B [facility].#: [id number] Admission: 04/05/21 Attend Phys: Frantz Craig DO Discharge: 04/12/21 Date of : 63 Report #: [id number] patient had about a 2-month history of difficulties controlling her anxiety, yelling out. In addition, she was admitted to . EEG was done. I do not believe she was having seizures at . HOSPITAL COURSE: She was admitted to [facility]. We went through several iterations of regimes, had her on scheduled olanzapine, but she became sedated, then the patient was given Keppra for 2 seizures that occurred a couple of days prior to discharge. We then ran into a situation where she could not swallow, so we went through sublingual Ativan. Last 24 hours, the patient without seizure event, slept well. I was surprised when I talked to her guardian and she wanted to do care at home. The patient does require a significant amount of assistance, but that is what the guardian wants to do. PHYSICAL EXAMINATION: VITAL SIGNS: Temperature 96.8, pulse 65, respirations 16, BP 104/58, O2 sat 98%. MUSCULOSKELETAL: Somewhat frail, ill appearing, seen in Joselin chair. MENTAL STATUS EXAMINATION: This is well-developed, ill-appearing, special needs adult female. Attention impaired. Concentration impaired. Speech largely mute, unable to assess well for suicidality, homicidality, auditory or visual type hallucinations. Mood and affect was a little sleepy, constricted, congruent. Memory not able to be formally tested. Insight and judgment impaired. Fund of knowledge well below average. Prognosis for this patient is quite guarded unfortunately due to Alzheimer's disease, Down syndrome, and other genetic concerns such as Hippel-Lindau disease. <ELECTRONICALLY SIGNED> By: Frantz Craig DO 04/13/21 1707 [id number] Frantz Craig DO /nt
--- NOTE | 2021-04-15 13:20 | NUR ---
Message received from Millie after discharge. SW returned message. Millie expressed needing the orders for physical and occupational therapy. The SW informed Millie that Dr. Craig will be requested to provide those. Millie is also requesting medication to assist with sleep as the patient stays up. Millie reports she has had her brother and sister in the home to help and all are exhausted. The SW asked Millie if she had contacted the numbers and agencies provided to her at discharge for follow-up psychiatric care. Millie reported she has not as she is continuously busy with the patient. She further expressed that she would have to mail it in as she has no way to get it to them. Millie has not contacted the other agencies. Millie reports the patient is going to require more care than she feels she can provide.
== END 2021-04-12 12:53 | disposition home or self-care (01) | DRG 57 ==
LOC: SBH
PROVIDERS: Hospitalist; ADMIT Psychiatry & Neurology Psychiatry; ATTEND Psychiatry & Neurology Psychiatry
DX: G30.9 Alzheimer's disease, unspecified (principal); F02.81 Dementia in other diseases classified elsewhere, unspecified severity, with behavioral disturbance; Q85.8 Other phakomatoses, not elsewhere classified; G40.109 Localization-related (focal) (partial) symptomatic epilepsy and epileptic syndromes with simple partial seizures, not intractable, without status epilepticus; R13.10 Dysphagia, unspecified; Z66 Do not resuscitate; K59.09 Other constipation; R79.89 Other specified abnormal findings of blood chemistry; F79 Unspecified intellectual disabilities; E78.00 Pure hypercholesterolemia, unspecified; Z20.822 Contact with and (suspected) exposure to COVID-19; Q90.9 Down syndrome, unspecified; Z79.899 Other long term (current) drug therapy; Z88.8 Allergy status to other drugs, medicaments and biological substances
CPT/HCPCS: 10880

== ENCOUNTER 2021-04-04 20:59 | Emergency (ER) | payer MEDICARE | END 2021-04-05 00:35 | LOC: ER 20:59 | PROVIDERS: Emergency Medicine | DX: R41.82 Altered mental status, unspecified (principal); Z20.822 Contact with and (suspected) exposure to COVID-19; F02.80 Dementia in other diseases classified elsewhere, unspecified severity, without behavioral disturbance, psychotic disturbance, mood disturbance, and anxiety; E03.9 Hypothyroidism, unspecified; F41.9 Anxiety disorder, unspecified; F32.9 Major depressive disorder, single episode, unspecified; Z88.8 Allergy status to other drugs, medicaments and biological substances ==